=== PATIENT | male | born 1945 | race Caucasian/White ===

== ENCOUNTER 2025-01-23 07:26 | Observation (INO) ==
[2025-01-23 07:56] LABS: Basophils #(Absolute) Auto 0.1 (0.0-0.1); Basophils%(Percent) Auto 0.7 (0.0-1.3); Eosinophils#(Absolute)Auto 0.2 (0.0-0.3); Eosinophils%(Percent) Auto 0.9 % (0.0-4.0); Granulocytes % - Auto 71.4 % (49.1-73.1); Granulocytes#(Absolute)- Auto 12.2 (2.0-6.2); Hematocrit 41.2 % (41.3-50.1); Mean Corpuscular Volume 90.9 fl (81.9-96.5); Monocytes #(Absolute)- Auto 1.1 (0.2-0.8); Monocytes %(Percent)- Auto 6.6 % (4.5-10.7); Platelet Count 411 K/uL (142-355); White Blood Count 17.1 K/uL (3.7-9.6)
[2025-01-23 08:08] LABS: INR 1.03
[2025-01-23] MEDS ORDERED: NITROGLYCERIN 0.4 MG TAB.SUBL SL ONE (08:41)
[2025-01-23] MEDS: NITROGLYCERIN 0.4 MG TAB.SUBL (BOTTLE) SL PRN (08:45)
--- NOTE | 2025-01-23 08:52 | Emergency Department Note ---
HPI - Chest Pain General Chief Complaint: Chest Pain Stated Complaint: chest pain Source: patient and family Mode of arrival: walk-in Limitations: no limitations History of Present Illness HPI narrative: A 79-year-old patient brought into the ER with his that has had chest pain since 10 PM last night has not rested all night secondary to the pain pain at its worst it was a 9 out of 10 currently is a 7-8 out of 10 on arrival. Patient denies having pain like this in the past denies any shortness of breath, no nausea no vomiting no change in his bowels no ill contacts and no trauma that he is aware of. Patient does admit that he just finished Levaquin and medicines for cough but he is getting some white frothy sputum at times. And then noted at the time of this exam. Patient describes the pain as pressure and heaviness denies any sharp pain no radiating pain no sweating or diaphoresis Related Data Allergies Allergy/AdvReac Type Severity Reaction Status Date / Time No Known Drug Allergies Allergy Verified 01/23/25 07:41 Review of Systems Status of ROS 10 or more systems reviewed and unremark able except as noted in history and below Constitutional Reports: fatigue and change in sleep pattern; Denies: fever, chills, change in weight, malaise or night sweats Eyes Denies: change in vision, blurry vision, blind spots, light sensitivity, eye discomfort, eye discharge, dry eyes, increased production of tears, floaters, seeing flashes or decreased night vision Ears, nose, mouth, and throat Reports: nasal congestion; Denies: throat pain, neck pain, throat swelling, difficulty swallowing, hoarseness, mouth pain, swelling of lips/tongue, dry mouth, bad breath, ear pain, ear discharge, change in hearing, tinnitus, vertigo, nasal discharge, nose bleeds or post nasal drip Cardiovascular Reports: chest pain; Denies: palpitations, edema, swelling of feet/ankles, lightheadedness, shortness of breath with exertion, shortness of breath when lying down, leg pain with exertion or bluish discoloration of hands/feet Respiratory Reports: cough; Denies: shortness of breath, wheezing, stridor, pain on inspiration, change in phlegm color, coughing up blood or chest congestion Gastrointestinal Denies: abdominal pain, nausea, vomiting, coffee grounds in vomit, heartburn, diarrhea, constipation, bloating, belching, excessive passing of gas, difficulty swallowing, feeling full early, change in bowel habits, painful bowel movements, rectal pain, rectal swelling, rectal itching, change in stool character, blood in stool, mucus in stool, white/light colored stool or fatty stool Genitourinary Reports: urinary hesitancy; Denies: painful urination, urinary frequency, urinary urgency, blood in urine, genital pain, genital lesion, penile discharge, testicular pain, testicular mass, scrotal swelling, difficulty urinating, nighttime urination, change in urine stream, decreased urine ouput or difficulty starting urination Musculoskeletal Denies: back pain, neck pain, extremity pain, extremity swelling, joint pain, limited range of motion, joint swelling, muscle cramps, muscle weakness or loss of height Integumentary/Breast Denies: rash, itching, redness, skin pain, skin tenderness, skin swelling, sores, new lesion, changing lesion, non-healing lesion, changes in skin color, jaundice, stretch rodriguez, acne, nail changes, change in hair, breast pain, breast swelling, nipple discharge, breast mass, breast skin changes or change in breast shape Neurological Reports: headache; Denies: numbness in extremities, weakness in extremities, lack of coordination, dizziness, vertigo, confusion, behavioral changes, slurred speech, difficulty communicating thoughts, seizure-like activity or involuntary movements Psychiatric Reports: anxiety; Denies: mood swings, panic attacks, change in sleep pattern, hopelessness, loss of interest, irritability, paranoia, memory loss, difficulty concentrating, visual hallucinations, auditory hallucinations, tactile hallucinations, suicidal ideation or homicidal ideation Endocrine Reports: fatigue; Denies: excessive urination, excessive thirst, cold intolerance, excessive sweating, flushing, heat intolerance, deepening of the voice, change in body appearance or change in libido Hematologic/Lymphatic Denies: easy bruising, easy bleeding or enlarged lymph nodes Allergic/Immunologic Denies: hives, throat swelling, tongue swelling, facial swelling, wheezing, itchy eyes, seasonal allergies or food intolerance Exam Constitutional: abnormal general appearance (disheveled), (chronically ill) and (frail appearing), distress noted (moderate) and (respiratory), abnormal body habitus (cachectic) and (thin), limitations noted (physical limitations) and alert Vital Signs - 24 hr 01/23/25 07:29 01/23/25 07:29 01/23/25 08:00 Temperature 97.4 F L Pulse Rate 61 74 Respiratory Rate 20 Blood Pressure 171/93 170/92 Pulse Oximetry 94 L 94 L 95 Oxygen Delivery Me thod Room Air Room Air Room Air Oxygen Flow Rate 01/23/25 08:15 01/23/25 08:30 01/23/25 08:45 Temperature Pulse Rate 63 61 Respiratory Rate Blood Pressure 164/95 168/84 139/83 Pulse Oximetry 94 L 95 Oxygen Delivery Me thod Room Air Room Air Oxygen Flow Rate 01/23/25 08:45 01/23/25 08:50 01/23/25 09:00 Temperature Pulse Rate 64 74 Respiratory Rate Blood Pressure 139/83 116/77 123/75 Pulse Oximetry 91 L Oxygen Delivery Me thod Nasal Cannula Oxygen Flow Rate 2 01/23/25 09:15 01/23/25 09:30 01/23/25 09:45 Temperature Pulse Rate 66 55 L 56 L Respiratory Rate Blood Pressure 118/82 110/77 143/77 Pulse Oximetry 96 98 99 Oxygen Delivery Me thod Nasal Cannula Nasal Cannula Nasal Cannula Oxygen Flow Rate 2 2 2 HENMT: normocephalic, head/scalp atraumatic, hearing grossly normal bilaterally, external ears normal, EACs normal, TMs abnormal, nasal mucous membr anes normal, external nose normal, oral mucous membranes abnormal, oropharynx normal, dentition abnormal and gingiva normal Eyes: PERRL, EOMs intact bilaterally, conjunctivae normal, no scleral icterus, papilledema noted, alignment normal, periorbital findings normal and no nystagmus Neck/C-Spine: abnormal to visual inspection, trachea midline, cervical spine nontender, abnormal cervical ROM noted, supple, no meningeal signs and thyroid normal Lymph: no lymphadenopathy noted and no lymphedema noted Chest: inspection of chest normal, palpation of chest normal, inspection of breasts normal and palpation of breasts normal Respiratory: breath sounds unequal, normal respiratory effort, auscultation abnormal (diminished in the bases), no wheezes, no rales, no retractions, no use of accessory muscles and chest percussion normal Cardiovascular: heart rate abnormal (bradycardic), regular rhythm noted, no gallop, no rub, no murmur, no JVD, no clicks, peripheral pulses 2+ throughout and no additional abnormal heart sounds Gastrointestinal: abdomen normal to inspection, abdomen soft to palpation, nontender to palpation, nondistended, normoactive bowel sounds, no hepatosplenomegaly, no masses, no pulsatile mass, no ascites and normal rectal exam (deferred) Genitourinary: no CVA tenderness, bladder normal to palpation, penis abnormal (deferred), uncircumcised, testes abnormal, meatus abnormal (deferred), scrotum abnormal (deferred) and inguinal lymphadenopathy noted Back/Pelvis: spine normal to inspection, no thoracic spine tenderness, no lumbar spine tenderness, thoracic spine ROM normal, lumbar spine ROM abnormal, no paraspinal muscle tenderness noted and straight leg raise negative bilaterally Extremities: normal to inspection, normal to palpation, no tenderness, full ROM, no joint enlargement and no deformity 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, no movement abnormality noted, no focal motor deficit noted, sensory deficit noted, deep tendon reflexes 2+ bilaterally, gait abnormality noted (antalgic), speech normal, coordination normal, no pronator drift noted, no fasciculations noted and GCS normal Psychiatry: Mental Status Exam documented within this Exam's Psych section mental status grossly normal, oriented x3, thought process abnormality noted, cooperative, affect abnormality noted (labile), psychomotor abnormality noted (slow) and memory normal Feel stressed/tense/nervous/anxious/difficulty sl eeping: not at all Life stressor details: Current medical condition Skin: skin color normal, no rash, no lesions, no ecchymosis noted, no wounds, no lacerations, skin turgor abnormal, no jaundice, no petechiae, no mottling, nails abnormality noted (thick yellow finger and toes) and no alopecia Course Course Hospital Course: Chest pain assessment was a 7-8 out of 10 and patient's blood pressure was 168 systolic heart rate of 68 nitro given for chest pain pain came down to 1 out of 10 and patient was noted to be diaphoretic and pale blood pressure was measured at 116 systolic at that time. Reevaluation(s) Reevaluation #1: Patient reevaluated no more nitroglycerin after the first as needed patient states the pain is almost gone came status somewhat at this time and he looks and feels relieved blood pressures going back up systolics of 142 at this time heart rate remained stable in the 60s. Time: 10:03 Vital Signs Vital signs: Vital Signs Temperature 97.4 F L 01/23/25 07:29 Pulse Rate 61 01/23/25 07:29 Respiratory Rate 20 01/23/25 07:29 Blood Pressure 171/93 01/23/25 07:29 Pulse Oximetry 94 L 01/23/25 07:29 Oxygen Delivery Method Room Air 01/23/25 07:29 Temperature 97.4 F L 01/23/25 07:29 Pulse Rate 56 L 01/23/25 09:45 Respiratory Rate 20 01/23/25 07:29 Blood Pressure 143/77 01/23/25 09:45 Pulse Oximetry 99 01/23/25 09:45 Oxygen Delivery Method Nasal Cannula 01/23/25 09:45 Oxygen Flow Rate 2 01/23/25 09:45 MDM - Chest Pain Differential Diagnosis Differential diagnosis: Likely fracture of rib, pneumothorax, unstable angina pectoris, atypical chest pain, st elevation myocardial infarction, costochondritis, chest pain, biliary colic and other (gerd,dissecin, esophageal spasm) Medical Records Data Attestation: I reviewed the patient's medical records. Lab Data Attestation: I reviewed the patient's lab results. Labs: Lab Results 01/23/25 01/23/25 01/23/25 Range/Units 07:50 08:55 09:15 WBC 17.1 H (3.7-9.6) K/uL RBC 4.5 (4.40-5.80) M/uL Hgb 13.7 L (14.0-17.4) gm/dL Hct 41.2 L (41.3-50.1) % MCV 90.9 (81.9-96.5) fl MCH 30.3 (27.6-33.7) pg MCHC 33.4 (33.0-35.7) g/dl RDW 15.2 H (11.0-14.8) % Plt Count 411 H (142-355) K/uL MPV 7.3 (6.0-10.4) fl Gran % 71.4 (49.1-73.1) % Lymph % (Auto) 20.4 (17.6-39.05) % Gaines % (Auto) 6.6 (4.5-10.7) % Eos % (Auto) 0.9 (0.0-4.0) % Baso % (Auto) 0.7 (0.0-1.3) Lymph # (Auto) 3.5 H (0.8-2.9) Gaines # (Auto) 1.1 H (0.2-0.8) Eos # (Auto) 0.2 (0.0-0.3) Baso # (Auto) 0.1 (0.0-0.1) Absolute Gran (auto) 12.2 H (2.0-6.2) PT 14.0 (12.1-15.0) SECONDS PT Normal Control 13.7 INR 1.03 APTT 29.5 (23.9-36.7) SECONDS ABG pH 7.47 H (7.35-7.45) ABG pCO2 31 L (35-45) mmHg ABG pO2 82 (60-100) mmHg ABG PO2/FiO2 Ratio ABG HCO3 (22-26) mmo1/L ABG Total CO2 mmo1/L ABG O2 Saturation (92-100) % ABG Base Excess (-2-2) mmo1/L A-a O2 Gradient mmHg Respiratory Index (0-1) FiO2 % Sodium 136 (136-145) mmol/L Potassium 4.0 (3.6-5.2) mmol/L Chloride 102.0 (98-107) mmol/L Carbon Dioxide 26 (21-32) mmol/L Anion Gap 8.0 (4-14) mEq/L BUN 27 H (7-18) mg/dL Creatinine 1.3 (0.6-1.3) mg/dL Estimated GFR 56.2 (>59.9) Glucose 125 H (70-110) mg/dL Lactic Acid 1.4 (0.27-1.43) mmol/L Calcium 9.3 (8.5-10.1) mg/dL Total Bilirubin 0.32 (0.0-1.0) mg/dL AST 16 (15-37) U/L ALT 14 L (30-65) U/L Alkaline Phosphatase 61 (50-136) U/L Total Creatine Kinase 81 (39-308) U/L Troponin I High Sens 11.40 (4.0-60.4) ng/L B-Natriuretic Peptide 69.7 (0-100) pg/mL Total Protein 8.5 H (6.4-8.2) g/dL Albumin 3.9 (3.4-5.0) g/dL 01/23/25 Range/Units 09:15 WBC (3.7-9.6) K/uL RBC (4.40-5.80) M/uL Hgb (14.0-17.4) gm/dL Hct (41.3-50.1) % MCV (81.9-96.5) fl MCH (27.6-33.7) pg MCHC (33.0-35.7) g/dl RDW (11.0-14.8) % Plt Count (142-355) K/uL MPV (6.0-10.4) fl Gran % (49.1-73.1) % Lymph % (Auto) (17.6-39.05) % Gaines % (Auto) (4.5-10.7) % Eos % (Auto) (0.0-4.0) % Baso % (Auto) (0.0-1.3) Lymph # (Auto) (0.8-2.9) Gaines # (Auto) (0.2-0.8) Eos # (Auto) (0.0-0.3) Baso # (Auto) (0.0-0.1) Absolute Gran (auto) (2.0-6.2) PT (12.1-15.0) SECONDS PT Normal Control INR APTT (23.9-36.7) SECONDS ABG pH (7.35-7.45) ABG pCO2 (35-45) mmHg ABG pO2 111 (60-100) mmHg ABG PO2/FiO2 Ratio 0.74 ABG HCO3 22.6 (22-26) mmo1/L ABG Total CO2 23.6 mmo1/L ABG O2 Saturation 97 (92-100) % ABG Base Excess -0.3 (-2-2) mmo1/L A-a O2 Gradient 29 mmHg Respiratory Index 0.4 (0-1) FiO2 21 % Sodium (136-145) mmol/L Potassium (3.6-5.2) mmol/L Chloride (98-107) mmol/L Carbon Dioxide (21-32) mmol/L Anion Gap (4-14) mEq/L BUN (7-18) mg/dL Creatinine (0.6-1.3) mg/dL Estimated GFR (>59.9) Glucose (70-110) mg/dL Lactic Acid (0.27-1.43) mmol/L Calcium (8.5-10.1) mg/dL Total Bilirubin (0.0-1.0) mg/dL AST (15-37) U/L ALT (30-65) U/L Alkaline Phosphatase (50-136) U/L Total Creatine Kinase (39-308) U/L Troponin I High Sens (4.0-60.4) ng/L B-Natriuretic Peptide (0-100) pg/mL Total Protein (6.4-8.2) g/dL Albumin (3.4-5.0) g/dL Imaging Data Imaging ordered: Chest x-ray Radiologist's impression: XR CHEST 1V HISTORY: COUGH, CHEST PAINCOUGH, CHEST PAIN; COMPARISON: No relevant prior studies were available for comparison at the time of interpretation. TECHNIQUE: XR CHEST 1V FINDINGS: Chest: Lines and tubes: Cardiac leads overlie the chest. Mediastinum: Cardiac and mediastinal shadow is within normal limits for size and contour. Pulmonary vessels: Pulmonary vasculature is prominent. Lung evans: No suspicious airspace opacity. Pleura: No effusion. No pneumothorax. Bones and soft tissues: No acute osseous or soft tissue abnormality. IMPRESSION: 1. Mild heart failure exacerbation suggested ECG Data Attestation: I have reviewed the pertinent ECG results. Prior ECG tracings: available for review Interpretation: EKG-sinus rhythm, rate 66, RR 904, NE 150, inferior infarct age indeterminant nothing new Discharge Plan Discharge Patient Disposition: Admitted As Observation Condition: Improved Chief Complaint: Chest Pain Clinical Impression: Chest pain, Unstable angina pectoris, COPD (chronic obstructive pulmonary disease), Pneumonia, Hypertension Print Language: Slovak Referrals: Frank Sommers [Primary Care Provider] - Time of Disposition: 10:05 [facility] Medical History Patient denies medical problems Surgical History Hx of tonsillectomy Social History Smoking status: former smoker Feel stressed/tense/nervous/anxious/difficulty sleeping: not at all Life stressor details: Current medical condition
[2025-01-23 09:25] LABS: Base Excess ABG -0.3 mmo1/L (-2-2); Oxygen Saturation ABG 97 % (92-100); PCO2 ABG 31 mmHg (35-45); PO2 ABG 82 mmHg (60-100); pH ABG 7.47 (7.35-7.45)
[2025-01-23] MEDS ORDERED: NITROGLYCERIN 1 GM OINT...G. TD ONE (11:07)
[2025-01-23] MEDS ORDERED: NITROGLYCERIN 0.4 MG TAB.SUBL (BOTTLE) SL PRN (12:00)
[2025-01-23] MEDS ORDERED: ACETAMINOPHEN 500 MG TABLET PO PRN (12:00)
[2025-01-23] MEDS ORDERED: ONDANSETRON HCL/PF 4 MG/2 ML VIAL INJ PRN (12:00)
[2025-01-23] MEDS: PANTOPRAZOLE SODIUM 40 MG TABLET.DR PO SCH (12:02)
[2025-01-23] MEDS: IPRATROPIUM/ALBUTEROL SULFATE 3 ML AMPUL.NEB INH SCH (12:07)
[2025-01-23] MEDS: BUDESONIDE 0.5 MG/2 ML AMPUL.NEB INH SCH (12:07)
[2025-01-23] MEDS: CEFTRIAXONE SODIUM 1 GM in 0.9 % SODIUM CHLORIDE MB+ 50 ML IV SCH (12:09)
[2025-01-23] MEDS: METOPROLOL TARTRATE 25 MG TABLET PO SCH (12:09)
[2025-01-23] MEDS: ASPIRIN 81 MG TABLET.DR PO SCH (12:09)
[2025-01-23] MEDS: ENOXAPARIN SODIUM 100 MG/ML SYRINGE SUBQ SCH (12:10)
[2025-01-23] MEDS: NITROGLYCERIN 1 GM OINT...G. TD SCH (12:22)
[2025-01-23 13:19] LABS: Specific Gravity Urine 1.025 (1.001-1.035); Urine Appearance CLEAR (CLEAR); Urine Blood NEGATIVE (NEG - TRACE); Urine Color YELLOW (STRAW/YELL.); Urine Urobilinogen Normal (NORMAL)
[2025-01-23] MEDS: AZITHROMYCIN 500 MG 500 MG in 0.9 % SODIUM CHLORIDE 250 ML IV SCH (13:44)
--- NOTE | 2025-01-23 14:42 | History & Physical Report ---
H&P: HPI History of Present Illness Chief complaint: Chest Pain, pneumonia, COPD Narrative: Mr. Delgado was admitted on 01/23/25 from the ED with SOB ongoing for 1 month. He was seen by unknown PCP last week and was started on inhalers for COPD. Patient states that he has not seen PCP prior to that visit in many years. He does have some cough with w/ sputum, NV that started 2 weeks ago. He was started on appetite stimulant at home for decreased appetite. Does also complain of L sided chest heaviness that is intermittent; lung sounds are diminished on left. He did stop smoking 2 years ago but was 1ppd smoker. He was on NC in the Ed but titrated off to NC Review of Systems Status of ROS 10 or more systems reviewed and unremark able except as noted in history and below Constitutional Reports: fatigue and change in sleep pattern; Denies: fever, chills, change in weight, malaise or night sweats Eyes Denies: change in vision, blurry vision, blind spots, light sensitivity, eye discomfort, eye discharge, dry eyes, increased production of tears, floaters, seeing flashes or decreased night vision Ears, nose, mouth, and throat Reports: nasal congestion; Denies: throat pain, neck pain, throat swelling, difficulty swallowing, hoarseness, mouth pain, swelling of lips/tongue, dry mouth, bad breath, ear pain, ear discharge, change in hearing, tinnitus, vertigo, nasal discharge, nose bleeds or post nasal drip Cardiovascular Reports: chest pain; Denies: palpitations, edema, swelling of feet/ankles, lightheadedness, shortness of breath with exertion, shortness of breath when lying down, leg pain with exertion or bluish discoloration of hands/feet Respiratory Reports: cough; Denies: shortness of breath, wheezing, stridor, pain on inspiration, change in phlegm color, coughing up blood or chest congestion Gastrointestinal Denies: abdominal pain, nausea, vomiting, coffee grounds in vomit, heartburn, diarrhea, constipation, bloating, belching, excessive passing of gas, difficulty swallowing, feeling full early, change in bowel habits, painful bowel movements, rectal pain, rectal swelling, rectal itching, change in stool character, blood in stool, mucus in stool, white/light colored stool or fatty stool Genitourinary Reports: urinary hesitancy; Denies: painful urination, urinary frequency, urinary urgency, blood in urine, genital pain, genital lesion, penile discharge, testicular pain, testicular mass, scrotal swelling, difficulty urinating, nighttime urination, change in urine stream, decreased urine ouput, difficulty starting urination or change in libido Musculoskeletal Denies: back pain, neck pain, extremity pain, extremity swelling, joint pain, limited range of motion, joint swelling, muscle cramps, muscle weakness or loss of height Integumentary/Breast Denies: rash, itching, redness, skin pain, skin tenderness, skin swelling, sores, new lesion, changing lesion, non-healing lesion, changes in skin color, jaundice, stretch rodriguez, acne, nail changes, change in hair, breast pain, breast swelling, nipple discharge, breast mass, breast skin changes or change in breast shape Neurological Reports: headache; Denies: numbness in extremities, weakness in extremities, lack of coordination, dizziness, vertigo, confusion, behavioral changes, slurred speech, difficulty communicating thoughts, seizure-like activit y or involuntary movements Psychiatric Reports: anxiety; Denies: mood swings, panic attacks, change in sleep pattern, hopelessness, loss of interest, irritability, paranoia, memory loss, difficulty concentrating, visual hallucinations, auditory hallucinations, tactile hallucinations, suicidal ideation or homicidal ideation Endocrine Reports: fatigue; Denies: excessive urination, excessive thirst, cold intolerance, excessive sweating, flushing, heat intolerance, deepening of the voice, change in body appearance or change in libido Hematologic/Lymphatic Denies: easy bruising, easy bleeding or enlarged lymph nodes Allergic/Immunologic Denies: hives, throat swelling, tongue swelling, facial swelling, wheezing, itchy eyes, seasonal allergies or food intolerance [facility] Medical History (Updated 01/23/25 @ 14:51 by Domingo Hooker NP) COPD exacerbation Surgical History Hx of tonsillectomy Social History Smoking status: former smoker Problems where you live: no known problems Highest level of school completed/degree received: [employer] Feel stressed/tense/nervous/anxious/difficulty sleeping: not at all Life stressor details: Current medical condition Meds Home Medications and Allergies Home Medications Medication Instructions Recorded Confirmed Type fluticasone fur. 200 mcg-umeclid 1 inh inhalation DAILY 01/23/25 01/23/25 History 62.5 mcg-vilant 25 mcg inhalat.powder (Trelegy Ellipta) ipratropium 0.5 mg-albuterol 3 mg 3 ml inhalation Q4H PRN shortness 01/23/25 01/23/25 History (2.5 mg base)/3 mL nebulization of breath or wheezing soln megestrol 400 mg/10 mL (40 mg/mL) 400 mg PO BEDTIME 01/23/25 01/23/25 History oral suspension Allergies Allergy/AdvReac Type Severity Reaction Status Date / Time No Known Drug Allergies Allergy Verified 01/23/25 07:41 Exam Exam: Patient on RA no acute distress. Does have diminished lungs throughout Constitutional: Vital Signs - 24 hr 01/23/25 07:29 01/23/25 07:29 01/23/25 08:00 Temperature 97.4 F L Pulse Rate 61 74 Pulse Rate [Right] Respiratory Rate 20 Blood Pressure 171/93 170/92 Blood Pressure [Ri ght Arm] Pulse Oximetry 94 L 94 L 95 Oxygen Delivery Me thod Room Air Room Air Room Air Oxygen Flow Rate 01/23/25 08:15 01/23/25 08:30 01/23/25 08:45 Temperature Pulse Rate 63 61 Pulse Rate [Right] Respiratory Rate Blood Pressure 164/95 168/84 139/83 Blood Pressure [Ri ght Arm] Pulse Oximetry 94 L 95 Oxygen Delivery Me thod Room Air Room Air Oxygen Flow Rate 01/23/25 08:45 01/23/25 08:50 01/23/25 09:00 Temperature Pulse Rate 64 74 Pulse Rate [Right] Respiratory Rate Blood Pressure 139/83 116/77 123/75 Blood Pressure [Ri ght Arm] Pulse Oximetry 91 L Oxygen Delivery Me thod Nasal Cannula Oxygen Flow Rate 2 01/23/25 09:15 01/23/25 09:30 01/23/25 09:45 Temperature Pulse Rate 66 55 L 56 L Pulse Rate [Right] Respiratory Rate Blood Pressure 118/82 110/77 143/77 Blood Pressure [Ri ght Arm] Pulse Oximetry 96 98 99 Oxygen Delivery Me thod Nasal Cannula Nasal Cannula Nasal Cannula Oxygen Flow Rate 2 2 2 01/23/25 11:00 01/23/25 11:08 01/23/25 11:17 Temperature 98.3 F Pulse Rate 57 L Pulse Rate [Right] 61 61 Respiratory Rate 18 20 20 Blood Pressure 158/75 Blood Pressure [Ri t Arm] 176/72 Pulse Oximetry 99 98 98 Oxygen Delivery Me thod Nasal Cannula Nasal Cannula Nasal Cannula Oxygen Flow Rate 2 2 2 01/23/25 11:20 01/23/25 12:08 01/23/25 12:09 Temperature Pulse Rate 57 L Pulse Rate [Right] Respiratory Rate 18 Blood Pressure 158/75 176/72 Blood Pressure [Ri ght Arm] Pulse Oximetry 99 95 Oxygen Delivery Me thod Oxygen Flow Rate 01/23/25 13:38 Temperature Pulse Rate Pulse Rate [Right] Respiratory Rate Blood Pressure 146/72 Blood Pressure [Ri ght Arm] Pulse Oximetry Oxygen Delivery Me thod Oxygen Flow Rate HENMT: normocephalic, head/scalp atraumatic, hearing grossly normal bilaterally, external ears normal, nasal mucous membranes normal and external nose normal Eyes: PERRL, EOMs intact bilaterally, conjunctivae normal, no scleral icterus, no papilledema and normal visual evans by confrontation Neck/C-Spine: visual inspection normal, trachea midline, cervical spine nontender, cervical full ROM noted and supple Lymph: no lymphadenopathy noted and no lymphedema noted Chest: inspection of chest normal and palpation of chest normal Respiratory: normal respiratory effort and no use of accessory muscles Diminished bilaterally Cardiovascular: normal heart rate noted, regular rhythm noted, no gallop, no rub and no murmur Gastrointestinal: abdomen normal to inspection, abdomen soft to palpation and nontender to palpation Back/Pelvis: spine normal to inspection and no thoracic spine tenderness Extremities: normal to inspection, normal to palpation and no tenderness 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, no movement abnormality noted, no focal motor deficit noted, no sensory deficits noted, deep tendon reflexes 2+ bilaterally, gait normal, speech normal, coordination normal, no pronator drift noted, no fasciculations noted and GCS normal Psychiatry: mental status grossly normal, oriented x3, cooperative and memory normal Skin: mild palor Assessment and Plan Assessment and Plan (1) Chest pain: Assessment and Plan: ASA 81mg po daily Lopressor 25mg po BID NTG prn Qualifiers: Chest pain type: unspecified Qualified Code(s): R07.9 - Chest pain, unspecified Code(s): R07.9 - Chest pain, unspecified (2) COPD exacerbation: Assessment and Plan: duoneb QID Pulmicort BID Zpak Rocephin 1gm IV daily Code(s): J44.1 - Chronic obstructive pulmonary disease with (acute) exacerbation Plan See above Results Labs Labs: CBC 01/23/25 Range/Units 07:50 WBC 17.1 H (3.7-9.6) K/uL RBC 4.5 (4.40-5.80) M/uL Hgb 13.7 L (14.0-17.4) gm/dL Hct 41.2 L (41.3-50.1) % Plt Count 411 H (142-355) K/uL Gran % 71.4 (49.1-73.1) % Lymph % (Auto) 20.4 (17.6-39.05) % [place] % (Auto) 6.6 (4.5-10.7) % Eos % (Auto) 0.9 (0.0-4.0) % Baso % (Auto) 0.7 (0.0-1.3) Lymph # (Auto) 3.5 H (0.8-2.9) [place] # (Auto) 1.1 H (0.2-0.8) Eos # (Auto) 0.2 (0.0-0.3) Baso # (Auto) 0.1 (0.0-0.1) Absolute Gran (auto) 12.2 H (2.0-6.2) CMP 01/23/25 07:50 Sodium 136 Potassium 4.0 Chloride 102.0 Carbon Dioxide 26 BUN 27 H Creatinine 1.3 Glucose 125 H Calcium 9.3 Cardiac Enzymes 01/23/25 07:50 Total Creatine Kinase 81 Liver Function 01/23/25 Range/Units 07:50 Total Bilirubin 0.32 (0.0-1.0) mg/dL AST 16 (15-37) U/L ALT 14 L (30-65) U/L Alkaline Phosphatase 61 (50-136) U/L Albumin 3.9 (3.4-5.0) g/dL Urine 01/23/25 13:05 Urine Color Yellow Urine Appearance Clear Ur Specific [place] 1.025 Urine Protein Negative Urine Glucose (UA) Normal ABG ABG results: 01/23/25 09:15 ABG pH 7.47 H ABG pCO2 31 L ABG pO2 111 ABG HCO3 22.6 ABG Total CO2 23.6 ABG O2 Saturation 97 ABG Base Excess -0.3 Imaging Imaging ordered: Chest x-ray Radiologist's impression: Patient: Delmer Delgado MR#: [id number] : 1945 Acct:[id number] Age/Sex: 79 / M ADM Date: 01/23/25 Loc: ED Attending Dr: Ordering Physician: Wilma Rodriguez DO Date of Service: 01/23/25 Procedure(s): XR chest 1V Accession Number(s): [id number] cc: Wilma Rodriguez DO~ EXAM: XR CHEST 1V HISTORY: COUGH, CHEST PA[place], CHEST PAIN; COMPARISON: No relevant prior studies were available for comparison at the time of interpretation. TECHNIQUE: XR CHEST 1V FINDINGS: Chest: Lines and tubes: Cardiac leads overlie the chest. Mediastinum: Cardiac and mediastinal shadow is within normal limits for size and contour. Pulmonary vessels: Pulmonary vasculature is prominent. Lung evans: No suspicious airspace opacity. Pleura: No effusion. No pneumothorax. Bones and soft tissues: No acute osseous or soft tissue abnormality. IMPRESSION: 1. Mild heart failure exacerbation suggested THIS IS AN ELECTRONICALLY VERIFIED FINAL REPORT 01/23/2025 7:56 AM - Electronically signed by Eran Day MD Dictated By: Eran Day M.D. Signed By: 01/23/25 0756 DD/ 0738 TD/TT: 01/23/25 0754 Senior Administrative Services Officer:
[2025-01-23] MEDS: MEGESTROL ACETATE 400 MG/10 ML ORAL.SUSP PO SCH (23:14)
[2025-01-24 03:57] VITALS: RESP 19
[2025-01-24 06:51] LABS: Basophils #(Absolute) Auto 0.1 (0.0-0.1); Basophils%(Percent) Auto 0.6 (0.0-1.3); Eosinophils#(Absolute)Auto 0.1 (0.0-0.3); Eosinophils%(Percent) Auto 0.6 % (0.0-4.0); Granulocytes % - Auto 73.5 % (49.1-73.1); Granulocytes#(Absolute)- Auto 10.6 (2.0-6.2); Hematocrit 39.8 % (41.3-50.1); Mean Corpuscular Volume 90.9 fl (81.9-96.5); Monocytes #(Absolute)- Auto 1.1 (0.2-0.8); Monocytes %(Percent)- Auto 7.5 % (4.5-10.7); Platelet Count 346 K/uL (142-355); White Blood Count 14.4 K/uL (3.7-9.6)
[2025-01-24 06:55] LABS: Potassium 4.3 mmol/L (3.6-5.2)
[2025-01-24 09:40] VITALS: BP 150/74; PULSE 66; TEMP 97.6
--- NOTE | 2025-01-24 11:26 | Discharge Summary ---
DS: Providers Provider Date of admission: 01/23/25 10:30 Primary care physician: Frank Sommers Consults: 01/24/25 10:04 Consult to Home Health Routine Comment: Consulting Provider: Physician Instructions: Reason for consultation: copd DS: Diagnosis Discharge Diagnosis (1) Chest pain: Qualifiers: Chest pain type: unspecified Qualified Code(s): R07.9 - Chest pain, unspecified (2) COPD exacerbation: DS: Summary Hospital Course Hospital Course: Mr. Delgado was admitted on 01/23/25 from the ED with SOB ongoing for 1 month. He was seen by unknown PCP last week and was started on inhalers for COPD. Patient states that he has not seen PCP prior to that visit in many years. He does have some cough with w/ sputum, NV that started 2 weeks ago. He was started on appetite stimulant at home for decreased appetite. Does also complain of L sided chest heaviness that is intermittent; lung sounds are diminished on left. He did stop smoking 2 years ago but was 1ppd smoker. He was on NC in the Ed but titrated off to NC. He was started on COPD abx regimen of zithromax and rocephin with nebulizers. Cardiac enzymes were negative during stay and prelim echo showed 68%. WBC did trend down with abx to 17, and patient improved. He was discharged home on 01/24/25 to continue OP course of ABX and follow up with PCP in 1 week. Time spent discussing smoking cessation with patient: more than 10 minutes Status at Discharge Overall status at discharge: patient is progressing back to baseline Time Spent with Patient Time attestation: Total time spent providing and/or coordinating discharge services: Time spent: greater than 30 minutes Exam Exam: Patient on RA no acute distress. Does have diminished lungs throughout Constitutional: normal general appearance, no apparent distress and average body habitus Vital Signs - 24 hr 01/23/25 12:08 01/23/25 12:09 01/23/25 13:38 Temperature Pulse Rate [Right] Respiratory Rate Blood Pressure 176/72 146/72 Blood Pressure [Ri ght Arm] Pulse Oximetry 95 Oxygen Delivery Me thod 01/23/25 15:58 01/23/25 16:06 01/23/25 19:12 Temperature 97.6 F Pulse Rate [Right] 65 Respiratory Rate 17 Blood Pressure Blood Pressure [Ri ght Arm] 140/68 Pulse Oximetry 99 100 96 Oxygen Delivery Me thod Room Air 01/23/25 20:00 01/23/25 21:01 01/24/25 00:00 Temperature 97.7 F 98.0 F Pulse Rate [Right] 60 58 L Respiratory Rate 22 17 Blood Pressure 131/62 Blood Pressure [Ri ght Arm] 131/62 119/74 Pulse Oximetry 97 96 Oxygen Delivery Me thod Room Air Room Air 01/24/25 00:57 01/24/25 01:16 01/24/25 03:56 Temperature Pulse Rate [Right] Respiratory Rate Blood Pressure 119/74 Blood Pressure [Ri ght Arm] Pulse Oximetry 96 96 Oxygen Delivery Me thod 01/24/25 03:57 01/24/25 08:00 01/24/25 08:31 Temperature 97.8 F 97.6 F Pulse Rate [Right] 60 66 Respiratory Rate 19 19 Blood Pressure Blood Pressure [Ri ght Arm] 143/71 150/74 Pulse Oximetry 96 100 98 Oxygen Delivery Me thod Room Air Room Air HENMT: normocephalic, head/scalp atraumatic, hearing grossly normal bilaterally, external ears normal, nasal mucous membranes normal and external nose normal Eyes: PERRL, EOMs intact bilaterally, conjunctivae normal, no scleral icterus, no papilledema and normal visual evans by confrontation Neck/C-Spine: visual inspection normal, trachea midline, cervical spine nontender, cervical full ROM noted and supple Lymph: no lymphadenopathy noted and no lymphedema noted Chest: inspection of chest normal and palpation of chest normal Respiratory: normal respiratory effort and no use of accessory muscles Diminished AKUA and LLL, otherwise clear Cardiovascular: normal heart rate noted, regular rhythm noted, no gallop, no rub and no murmur Gastrointestinal: abdomen normal to inspection, abdomen soft to palpation and nontender to palpation Back/Pelvis: spine normal to inspection and no thoracic spine tenderness Extremities: normal to inspection, normal to palpation and no tenderness Neurology: 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, no movement abnormality noted, no focal motor deficit noted, no sensory deficits noted, deep tendon reflexes 2+ bilaterally, gait normal, speech normal, coordination normal, no pronator drift noted, no fasciculations noted and GCS normal Psychiatry: mental status grossly normal, oriented x3, cooperative and memory normal Skin: skin color normal, no rash and no lesions mild palor DS: Data Data Completed and Pending Labs on day of discharge: Labs from last 24 hours 01/24/25 01/23/25 01/23/25 06:22 23:25 17:40 WBC 14.4 H RBC 4.4 Hgb 13.3 L Hct 39.8 L MCV 90.9 MCH 30.4 MCHC 33.4 RDW 14.9 H Plt Count 346 MPV 7.6 Gran % 73.5 H Lymph % (Auto) 17.8 [place] % (Auto) 7.5 Eos % (Auto) 0.6 Baso % (Auto) 0.6 Lymph # (Auto) 2.6 [place] # (Auto) 1.1 H Eos # (Auto) 0.1 Baso # (Auto) 0.1 Absolute Gran (auto) 10.6 H Sodium 135 L Potassium 4.3 Chloride 102.0 Carbon Dioxide 23 Anion Gap 10.0 BUN 25 H Creatinine 1.1 Estimated GFR 68.7 Glucose 110 Calcium 9.1 Phosphorus 4.3 Magnesium 2.2 Total Bilirubin 0.25 AST 16 ALT 11 L Alkaline Phosphatase 47 L Troponin I High Sens 11.90 15.40 B-Natriuretic Peptide 129.0 H Total Protein 7.5 Albumin 3.4 Triglycerides 97 Cholesterol 143 LDL Cholesterol 93.0 VLDL Cholesterol, Calc 19 HDL Cholesterol 39 LDL/HDL Ratio 2.4 Cholesterol/HDL Ratio 3 Urine Color Urine Appearance Ur Specific [place] Urine Protein Urine Glucose (UA) Urine Ketones Urine Occult Blood Urine Nitrite Urine Bilirubin Urine Urobilinogen Ur Leukocyte Esterase Fluid pH 01/23/25 01/23/25 13:05 11:30 WBC RBC Hgb Hct MCV MCH MCHC RDW Plt Count MPV Gran % Lymph % (Auto) [place] % (Auto) Eos % (Auto) Baso % (Auto) Lymph # (Auto) [place] # (Auto) Eos # (Auto) Baso # (Auto) Absolute Gran (auto) Sodium Potassium Chloride Carbon Dioxide Anion Gap BUN Creatinine Estimated GFR Glucose Calcium Phosphorus Magnesium Total Bilirubin AST ALT Alkaline Phosphatase Troponin I High Sens 16.70 B-Natriuretic Peptide Total Protein Albumin Triglycerides Cholesterol LDL Cholesterol VLDL Cholesterol, Calc HDL Cholesterol LDL/HDL Ratio Cholesterol/HDL Ratio Urine Color Yellow Urine Appearance Clear Ur Specific [place] 1.025 Urine Protein Negative Urine Glucose (UA) Normal Urine Ketones Negative Urine Occult Blood Negative Urine Nitrite Negative Urine Bilirubin Negative Urine Urobilinogen Normal Ur Leukocyte Esterase Negative Fluid pH 6.0 Preliminary micro results at discharge 01/23/25 09:15 Blood Culture - Preliminary Blood - Venous Draw (Peripheral) 01/23/25 08:55 Blood Culture - Preliminary Blood - Venous Draw (Peripheral) Discharge Plan Discharge Disposition: Home, Self-Care Condition: Improved Discharge Medications: New aspirin 81 mg Tablet,Delayed Release (Dr/Ec) 81 mg PO DAILY Qty: 30 0RF metoprolol tartrate 25 mg Tablet 25 mg PO Q12H Qty: 60 0RF azithromycin [Zithromax] 250 mg tablet 250 mg PO DAILY 4 Days Qty: 4 0RF Rx Instructions: start on day 2 of therapy cefdinir 300 mg capsule 300 mg PO BID Qty: 20 0RF Continued Trelegy Ellipta 200-62.5-25 mcg blister with device 1 inh INHALATION DAILY ipratropium-albuterol 0.5 mg-3 mg(2.5 mg base)/3 mL solution for nebulization 3 ml INHALATION Q4H PRN (Reason: shortness of breath or wheezing) Patient Comments: USE 1 AMPULE IN NEBULIZER EVERY 4 HOURS NEEDED megestrol 400 mg/10 mL (40 mg/mL) suspension 400 mg PO BEDTIME Patient Comments: TAKE 10 ML BY MOUTH ONCE DAILY AT BEDTIME Discharge Orders: Discharge Order (Routine); Ordered 01/24/25 Ordered By: Domingo Hooker Activity: resume usual activities as tolerated Diet: advance to your usual diet Interventions: Discharge Assessment Last Done: 01/24/25 10:26 MED/SURG & ICU Observation Charge Sheet Last Done: 01/24/25 10:30 Patient Instructions: Chest Pain (DC), Pneumonia (DC) Forms: Portal/Health Info Access Inst Follow-Ups: Frank Sommers [Primary Care Provider] - 01/31/25 2:30 pm Discharge Date/Time: 01/24/25 13:13
--- NOTE | 2025-01-25 16:12 | Echocardiogram Report ---
Study Quality: Good Indications / History: Pulmonary congestion. Diagnosis/CPT Code(s): TTE - 2D w/ or w/o M-Mode Complete (16075). Echo Dimensions Ao Root Mandi (M-Mode): 3.5 cm LA Dimen (M-Mode): 3.8 cm IVS(D) (M-Mode): 1.15 cm IVS(D) (2D): 0.9 cm LVPW(D) (M-Mode): 1.07 cm LVPW(D) (2D): 1 cm LV(D) (M-Mode): 4.47 cm LV(D) (2D): 4.7 cm LV(S) (M-Mode): 2.72 cm LV(S) (2D): 2.7 cm Asc Ao Mandi (2D): 3 cm RV(D (2D): 2.6 cm LVOT (2D): 1.7 cm AV opening (M-Mode): 1.8 cm EF (M-Mode): 71 % EF (2D): 68 % RVSP (Doppler): 54 mmHg Doppler ------- * Aortic Valve LVOT Peak Gradient: 3 mmHg. LVOT Peak Velocity: 0.82 m/s. LVOT Mean Grad: 2 mmHg. LVOT VTI: 22.9 cm. LVOT/AV VTI: 0.74. AV Peak Velocity: 1.31 m/s. AV Peak Gradient: 7 mmHg. AV Mean Gradient: 4 mmHg. AV VTI: 30.9 cm. * Mitral Valve MV Area (PHT): 1.57 cm2. MV Peak E Donald: 0.67 m/s. MV Peak A Donald: 1.41 m/s. E/A: 0.5. MV PHT: 140 ms. MV Dec T: 479 ms. * Diastolic Functions / TDI E/e' medial: 11.2. E/e' lateral: 11. E/e' average: 11.1. Peak e' medial donald: 5.98 cm/s. Peak e' lateral donald: 6.09 cm/s. * Tricuspid Valve RVSP: 54 mmHg. RA Pressure: 10 mmHg. TR Peak Grad: 44 mmHg. TV Regurg.Peak Donald: 3.3 m/s. Findings -------- Left Ventricle LV chamber and wall dimensions are normal. There is normal LV systolic function. There are no wall motion abnormalities. The estimated LV ejection fraction is normal at 65-70%. Doppler evidence for Grade I diastolic dysfunction. Right Ventricle There is normal right ventricular size, wall dimension, and systolic function. Left Atrium LA chamber size is normal. LA diameter is 3.8 cm. Right Atrium RA chamber size is normal. Aortic Valve There is a trileaflet aortic valve. There is diffuse aortic valve thickening. There is mild aortic regurgitation. There is no aortic valve stenosis. Mitral Valve The mitral valve is structurally normal. There is trace mitral regurgitation. There is no mitral stenosis. Tricuspid Valve Tricuspid valve is structurally normal. There is mild to moderate tricuspid regurgitation. Estimated RVSP systolic pressure is 54 mmHg. Pulmonary Valve The pulmonic valve structurally is normal. There is trivial pulmonic regurgitation. Pericardium The pericardium is normal. There is no pericardial effusion present. Aorta The size of the visualized portion of aortic root is within normal limits. Aortic Root diameter (M-mode) is 3.5 cm. Thrombus/Mass There is no intracardiac mass or thrombus identified. Impressions * M-mode, 2-D echocardiogram is performed with cardiac doppler including, spectral doppler (continuous wave and pulse wave) and color flow. There is no evidence of intracavitary mass or thrombus. Right heart pressure is 54 mmHg. * Normal left ventricular size, wall thickness and systolic function. * No left ventricular wall motion abnormalities. * LVEF (normal): 65-70%. * Doppler evidence for Grade I diastolic dysfunction. * Normal right ventricular size and function. * Mild aortic regurgitation. * Trivial mitral regurgitation. * Mild to moderate tricuspid regurgitation. * Trivial pulmonic regurgitation. * The size of the visualized portion of aortic root is within normal limits. * No pericardial effusion. * There are no prior studies available for comparison. Electronically signed by: Jorge Santiago MD 01/25/2025 3:45 PM [facility]
== END 2025-01-24 13:13 | disposition home or self-care (01) ==
LOC: ED 07:26 → MS 07:26
PROVIDERS: ADMIT Nurse Practitioner; ATTEND Nurse Practitioner
DX: J44.1 Chronic obstructive pulmonary disease with (acute) exacerbation; Z87.891 Personal history of nicotine dependence; J18.9 Pneumonia, unspecified organism